=== PATIENT | female | born 1990 ===

== ENCOUNTER 2018-05-14 12:19 | Outpatient (CLI) | payer OTHER ==
[~2018-05-14] VITALS: Ht 157.5 cm; Wt 58.1 kg
== END 2018-05-14 12:35 | disposition home or self-care (01) ==
LOC: OFIC 805 12:19
DX: H93.13 Tinnitus, bilateral (principal); L30.8 Other specified dermatitis

== ENCOUNTER 2018-07-18 09:36 | Outpatient (CLI) | payer OTHER ==
[~2018-07-18] VITALS: Ht 152.4 cm; Wt 58.1 kg
== END 2018-07-18 10:00 | disposition home or self-care (01) ==
LOC: OFIC 805 09:36
DX: H60.599 Other noninfective acute otitis externa, unspecified ear (principal); H69.91 Unspecified Eustachian tube disorder, right ear; J30.89 Other allergic rhinitis

== ENCOUNTER 2019-11-09 12:03 | Outpatient (CLI) | payer OTHER ==
[2019-11-09] MEDS ORDERED: DYMISTA NASAL S23 GM NASAL (12:55)
[2019-11-09] MEDS ORDERED: DERMOTIC20 ML OTIC (12:56)
== END 2019-11-09 13:00 | disposition home or self-care (01) ==
LOC: OFIC 805 12:03
PROVIDERS: ATTEND Otolaryngology
DX: J30.89 Other allergic rhinitis (principal); L30.8 Other specified dermatitis; H69.81 Other specified disorders of Eustachian tube, right ear; H93.11 Tinnitus, right ear

== ENCOUNTER 2019-12-28 12:59 | Outpatient (CLI) | payer OTHER ==
[~2019-12-28 12:59] MED LIST: DERMOTIC20 ML OTIC; DYMISTA NASAL S23 GM NASAL
== END 2019-12-28 16:32 | disposition home or self-care (01) ==
LOC: OFIC 805 12:59
PROVIDERS: ATTEND Otolaryngology
DX: J30.89 Other allergic rhinitis (principal); H69.81 Other specified disorders of Eustachian tube, right ear; H93.11 Tinnitus, right ear

== ENCOUNTER → 2020-03-13 | Outpatient (CLI) | payer OTHER | END | disposition home or self-care (01) | LOC: OFIC 805 08:45 | PROVIDERS: ATTEND Otolaryngology | DX: H92.02 Otalgia, left ear (principal); H61.22 Impacted cerumen, left ear ==

== ENCOUNTER → 2020-03-21 | Outpatient (CLI) | payer OTHER | END | disposition home or self-care (01) | LOC: OFIC 805 12:15 | PROVIDERS: ATTEND Otolaryngology | DX: H92.02 Otalgia, left ear (principal); H60.8X2 Other otitis externa, left ear; H93.8X2 Other specified disorders of left ear ==